=== PATIENT | male | born 1960 | race African-American/Black ===

== ENCOUNTER 2017-02-10 13:44 | Emergency (ER) | payer OTHER ==
[2017-02-10 13:46] VITALS: BP 159/90; PULSE 81; RESP 14; TEMP 98.8; O2SAT 97
--- NOTE | 2017-02-10 14:16 | PD ---
HPI Chief Complaint: Nosebleed Time Seen by Provider: 13:55 Travel History International Travel<30 days: No Contact w/Intl Traveler<30days: No Traveled to known affect area: No History of Present Illness HPI 56-year-old male presents to emergency with a bloody nose that started around 11 :30 this morning. States that he was washing dishes as usual and it just started bleeding started bleeding. Patient denies any dizziness, blurred vision , nausea, vomiting, diarrhea. Patient denies digital trauma or allergy symptoms. Also denies history of high blood pressure or blood disorders. He had a similar episode about 5-6 years ago that resolved on its own but has not followed up with his condition. Patient has no other complaints today. As of evaluation, the bleeding is controlled and no active bleeding is present. PFSH Past Medical History Cancer: No Cardiovascular Problems: No Diabetes: No Endocrine: No Genitourinary: No Hepatitis: No Hiatal Hernia: No Immune Disorder: No Musculoskeletal: No Neurologic: No Psychiatric: No Reproductive: No Respiratory: No Thyroid Disease: No Past Surgical History AICD: No Joint Replacement: No Pacemaker: No Social History Tobacco Use: No Allergies-Medications (Allergen,Severity, Reaction): Coded Allergies: No Known Allergies (Verified , 12/15/13) Reported Meds & Prescriptions Reported Meds & Active Scripts Active No Active Prescriptions or Reported Medications Review of Systems Except as stated in HPI: all other systems reviewed are Neg Physical Exam Narrative GENERAL: Well-nourished, well-developed patient. SKIN: Focused skin assessment warm/dry. HEAD: Normocephalic. NOSE: left nare- dried blood at the anterior portion of the nose. No active bleeding. EYES: No scleral icterus. No injection or drainage. No discharge from the naris NECK: Supple, trachea midline. No JVD or lymphadenopathy. CARDIOVASCULAR: Regular rate and rhythm without murmurs, gallops, or rubs. RESPIRATORY: Breath sounds equal bilaterally. No accessory muscle use. MUSCULOSKELETAL: No cyanosis, or edema. BACK: Nontender without obvious deformity. No CVA tenderness. Data Data Last Documented VS Vital Signs Date Time Temp Pulse Resp B/P (MAP) Pulse Ox O2 Delivery O2 Flow Rate FiO2 02/10/17 13:46 98.8 81 14 159/90 (113) 97 MDM Medical Decision Making Medical Screen Exam Complete: Yes Emergency Medical Condition: Yes Differential Diagnosis Epistaxis versus digital trauma versus allergic rhinitis Narrative Course 56-year-old male presents to emergency with a bloody nose that started around 11 :30 this morning. States that he was washing dishes as usual and it just started bleeding started bleeding. Patient denies any dizziness, blurred vision , nausea, vomiting, diarrhea. Patient denies digital trauma or allergy symptoms. Also denies history of high blood pressure or any blood disorders. He had a similar episode about 5-6 years ago that resolved on its own but has not followed up with his condition. Patient has no other complaints today. As of evaluation, the bleeding is controlled and no active bleeding is present. Vital signs stable Explained potential etiologies of his condition. Patient did not demonstrate any epistaxis during exam. A medical screening exam was performed: At the time of evaluation the presenting medical condition was determined not to be of an emergent nature. The patient was given the option of receiving additional care, but declined. Patient was given options for additional community resources from which to obtain care. The Patient Has Been advised to seek medical attention for their presenting complaint. The patient has been advised to return to the ER at any time if an emergent condition develops. Diagnosis Primary Impression: Encounter for medical screening examination Scripts No Active Prescriptions or Reported Meds Disposition: 01 DISCHARGE HOME Condition: Stable Deyanira Myers Feb 10, 2017 14:16
== END 2017-02-10 14:21 | disposition left against medical advice (07) ==
LOC: NEPK 13:44
DX: R04.0 Epistaxis (principal)
CPT/HCPCS: 99281

== ENCOUNTER 2017-02-11 07:53 | Emergency (ER) | payer SELFPAY ==
[~2017-02-11] VITALS: Ht 205.7 cm; Wt 178.0 kg
[2017-02-11 08:00] VITALS: BP 139/89; PULSE 88; RESP 16; TEMP 98; O2SAT 96
--- NOTE | 2017-02-11 08:51 | PD ---
HPI Chief Complaint: Nosebleed Time Seen by Provider: 08:48 Travel History International Travel<30 days: No Contact w/Intl Traveler<30days: No Traveled to known affect area: No History of Present Illness HPI 56-year-old male patient with no sniff can past medical issues, seen yesterday for an epistaxis that had stopped on its own, comes back again today because he states this started rebleeding this morning. He denies any other issues, easy bruising, gum bleeding, black stools, or any other problems. He denies being on any blood thinners. Modifying Factors: None Associated Signs & Symptoms: Epistaxis Risk Factors: None History Past Medical Histgory Hx Cancer: No Social History Tobacco Use: No Allergies-Medications (Allergen,Severity, Reaction): Coded Allergies: No Known Allergies (Verified Adverse Reaction, Unknown, 02/11/17) Reported Meds & Prescriptions Reported Meds & Active Scripts Active No Active Prescriptions or Reported Medications Review of Systems Except as stated in HPI: all other systems reviewed are Neg Physical Exam Narrative GENERAL: Well-nourished, well-developed middle age -Spanish male patient in no acute distress. Awake and oriented 3. SKIN: Focused skin assessment warm/dry. HEAD: Normocephalic. EYES: No scleral icterus. No injection or drainage. ENT: Mucosa pink and moist. No erythema or exudates. No uvular edema. No uvular , palatal, or tonsillar deviation. Airway patent. Nasal turbinates appear normal small amount of right nostril nasal blood, no active bleeding, no purulent drainage or septal hematoma. NECK: Supple, trachea midline. No JVD or lymphadenopathy. CARDIOVASCULAR: Regular rate and rhythm without murmurs, gallops, or rubs. RESPIRATORY: Breath sounds equal bilaterally. No accessory muscle use. GASTROINTESTINAL: Abdomen soft, non-tender, nondistended. MUSCULOSKELETAL: No cyanosis, or edema. BACK: Nontender without obvious deformity. No CVA tenderness. Data Data Last Documented VS Vital Signs Date Time Temp Pulse Resp B/P (MAP) Pulse Ox O2 Delivery O2 Flow Rate FiO2 02/11/17 08:00 98.0 88 16 139/89 (106) 96 MDM Medical Screen Exam Complete: Yes Emergency Medical Condition: No Differential Diagnosis Epistaxis Narrative Course His epistaxis has stopped at the moment and patient is not on any blood thinners , has had no problems with easy bleeding or bruising, no history of coagulopathy , I do not suspect other acute processes in this case. Bleeding has stopped on its own. At this point, he states that he went to bed and did not have problems until this morning. I do not suspect a acute process in this case. A medical screening exam was done and at this point I do not see any signs of acute issues, bleeding has stopped. Patient should return for any further acute processes, bleeding, and as needed. Primary Impression: Epistaxis Scripts No Active Prescriptions or Reported Meds Disposition: EDGO-ED USE ONLY Condition: Stable Sanjuanita Olivares MD Feb 11, 2017 08:51
== END 2017-02-11 09:00 | disposition left against medical advice (07) ==
LOC: NEPE 07:53
DX: R04.0 Epistaxis (principal)
CPT/HCPCS: 99281

== ENCOUNTER 2017-02-11 09:48 | Emergency (ER) | payer SELFPAY ==
[~2017-02-11] VITALS: Ht 205.7 cm; Wt 180.0 kg
[2017-02-11 09:52] VITALS: BP 140/78; PULSE 90; RESP 16; TEMP 98.2; O2SAT 99
--- NOTE | 2017-02-11 10:14 | PD ---
HPI Chief Complaint: Nosebleed Time Seen by Provider: 10:12 Travel History International Travel<30 days: No Contact w/Intl Traveler<30days: No Traveled to known affect area: No History of Present Illness HPI 56-year-old male presents with epistaxis since this morning. Patient states that he came to the emergency room yesterday but the bleeding stopped as he was riding to the hospital. Patient is concerned that this is a serious condition like to be evaluated today. Since that he was in the car driving home from work and his right nostril started leading profusely. Patient denies dizziness , weakness, blurred vision, headache, chest pain, shortness of breath, abdominal pain. She denies any other medical problems. He was able to control the epistaxis with pressure in a towel. PFSH Past Medical History Cancer: No Cardiovascular Problems: No Diabetes: No Endocrine: No Genitourinary: No Hepatitis: No Hiatal Hernia: No Immune Disorder: No Musculoskeletal: No Neurologic: No Psychiatric: No Reproductive: No Respiratory: No Thyroid Disease: No Past Surgical History AICD: No Joint Replacement: No Pacemaker: No Social History Tobacco Use: No Allergies-Medications (Allergen,Severity, Reaction): Coded Allergies: No Known Allergies (Verified Adverse Reaction, Unknown, 02/11/17) Reported Meds & Prescriptions Reported Meds & Active Scripts Active No Active Prescriptions or Reported Medications Review of Systems Except as stated in HPI: all other systems reviewed are Neg Physical Exam Narrative GENERAL: Well-nourished, well-developed patient. SKIN: Focused skin assessment warm/dry. HEAD: Normocephalic. EYES: No scleral icterus. No injection or drainage. EOMI PERRLA Nose: Appears that the epistaxis origination is coming from the anterior portion of his nose. No active bleeding NECK: Supple, trachea midline. No JVD or lymphadenopathy. CARDIOVASCULAR: Regular rate and rhythm without murmurs, gallops, or rubs. RESPIRATORY: Breath sounds equal bilaterally. No accessory muscle use. GASTROINTESTINAL: Abdomen soft, non-tender, nondistended. MUSCULOSKELETAL: No cyanosis, or edema. Cranial nerves II-12 grossly intact BACK: Nontender without obvious deformity. No CVA tenderness. Data Data Last Documented VS Vital Signs Date Time Temp Pulse Resp B/P (MAP) Pulse Ox O2 Delivery O2 Flow Rate FiO2 02/11/17 09:52 98.2 90 16 140/78 (98) 99 Orders Orders Phenylephrine 1% López Spr (Neosynephrine (02/11/17 10:15) Ed Discharge Order (02/11/17 10:42) MDM Medical Decision Making Medical Screen Exam Complete: Yes Emergency Medical Condition: Yes Differential Diagnosis Epistaxis versus nasal trauma versus digital trauma Narrative Course 56-year-old male presents with epistaxis since this morning. Patient states that he came to the emergency room yesterday but the bleeding stopped as he was riding to the hospital. Patient is concerned that this is a serious condition like to be evaluated today. Since that he was in the car driving home from work and his right nostril started leading profusely. Patient denies dizziness , weakness, blurred vision, headache, chest pain, shortness of breath, abdominal pain. She denies any other medical problems. He was able to control the epistaxis with pressure in a towel. Vital signs stable Erik-Synephrine applied to the right nostril to ensure control bleeding. Advise when he should use this again. Also advised to avoid consistent use secondary to rebound. Vision had multiple concerns regarding this bloody nose so I spent an extensive amount of time explaining the potential etiologies advised patient follow-up with primary care physician and subsequently an materials research engineer. Patient was reassured. States he will comply and follow up with an materials research engineer. I explained that there was no reason to admit or perform a full workup as this nosebleed is well controlled with pressure. Patient to follow up with primary care physician within 2-3 days. Diagnosis Primary Impression: Epistaxis Referrals: [facility] Additional Instructions: Follow-up with your primary care physician within 2-3 days If bleeding restarts hold the soft tissue of the nose for 5-10 minutes. Scripts No Active Prescriptions or Reported Meds Disposition: 01 DISCHARGE HOME Condition: Stable Deyanira Myers Feb 11, 2017 10:14
[2017-02-11] MEDS ORDERED: PHENYLEPHRINE HCL 1% NASAL SPRAY 15 ML BTL NASAL ONE (10:15)
== END 2017-02-11 10:56 | disposition home or self-care (01) ==
LOC: NEPK 09:48
DX: R04.0 Epistaxis (principal)
CPT/HCPCS: 99281